=== PATIENT | male | born 1985 | race American Indian/Alaskan Native ===

== ENCOUNTER 2019-05-12 21:25 | Emergency (ER) | payer OTHER ==
[2019-05-12 21:37] VITALS: BP 134/66
[2019-05-12] MEDS ORDERED: AMOXICILLIN/K CLAV 875/125MG TAB PO ONE (22:14)
[2019-05-12] MEDS ORDERED: TETANUS,DIPH,PERTUSS(ACELL) VACCINE 0.5 ML SYRINGE IM ONE (22:14)
--- NOTE | 2019-05-13 01:18 | Emergency Department Report ---
ED General Adult HPI - General Chief complaint: Wound/Laceration Stated complaint: BITE BY CAT/LEFT HAND Time Seen by Provider: 05/13/19 01:07 Source: patient Mode of arrival: Ambulatory Limitations: No Limitations - History of Present Illness Initial comments: 34-year-old -[place] Citizen male was coming in contact with a stray cat when she tried to assist him resulted in him being scratched since several times and possibly bitten reports pain to the wrist and some abrasion no numbness or tingling no fevers, chills, sweats the bite occurred about 4-5 hours ago Location: upper extremity Radiation: non-radiation Quality: dull Consistency: constant Improves with: none Worsens with: none - Related Data Previous Rx's Medication Instructions Recorded Last Taken Type Amoxicillin/Potassium Clav 1 each PO BID #20 tablet 05/13/19 Unknown Rx [Augmentin 875-125 Tablet] Mupirocin [Bactroban 2%] 15 applic TP TID #15 gm 05/13/19 Unknown Rx Allergies Allergy/AdvReac Type Severity Reaction Status Date / Time No Known Allergies Allergy Verified 05/12/19 21:28 ED Review of Systems ROS: Stated complaint: BITE BY CAT/LEFT HAND Other details as noted in HPI Comment: All other systems reviewed and negative ED Past Medical Hx - Past Medical History Previous Medical History?: No - Surgical History Past Surgical History?: No - Social History Smoking Status: Never Smoker Substance Use Type: None - Medications Home Medications: Home Medications Medication Instructions Recorded Confirmed Last Taken Type Amoxicillin/Potassium Clav 1 each PO BID #20 tablet 05/13/19 Unknown Rx [Augmentin 875-125 Tablet] Mupirocin [Bactroban 2%] 15 applic TP TID #15 gm 05/13/19 Unknown Rx ED Physical Exam - General Limitations: No Limitations General appearance: alert, in no apparent distress - Head Head exam: Present: atraumatic, normocephalic - Eye Eye exam: Present: normal appearance, PERRL, EOMI Pupils: Present: normal accommodation - ENT ENT exam: Present: normal exam, normal orophraynx, mucous membranes moist - Neck Neck exam: Present: normal inspection, full ROM - Respiratory Respiratory exam: Present: normal lung sounds bilaterally. Absent: respiratory distress, wheezes, rales, rhonchi, chest wall tenderness, accessory muscle use - Cardiovascular Cardiovascular Exam: Present: regular rate, normal rhythm. Absent: systolic murmur, diastolic murmur, rubs, gallop - GI/Abdominal GI/Abdominal exam: Present: soft, normal bowel sounds. Absent: distended, tenderness, hyperactive bowel sounds, hypoactive bowel sounds, organomegaly, mass - Rectal Rectal exam: Present: deferred - Extremities Exam Extremities exam: Present: normal inspection, full ROM, tenderness, normal capillary refill - Expanded Upper Extremity Exam Left Forearm Wrist exam: Present: tenderness, abrasion, other (multiple scratches) Hand Wrist exam: Present: tenderness, abrasion, other (multiple scratches no obvious puncture wound sites) - Back Exam Back exam: Present: normal inspection. Absent: CVA tenderness (R), CVA tenderness (L) - Neurological Exam Neurological exam: Present: alert, oriented X3, CN II-XII intact, normal gait - Psychiatric Psychiatric exam: Present: normal affect, normal mood. Absent: anxious, flat affect, manic - Skin Skin exam: Present: warm, dry, intact, normal color. Absent: rash, cyanosis, diaphoretic, erythema, petechiae, pallor, abrasion ED Course Vital Signs 05/12/19 21:30 Temperature 97.4 F L Pulse Rate 72 Respiratory 16 Rate Blood Pressure 134/66 O2 Sat by Pulse 97 Oximetry Critical care attestation.: If time is entered above; I have spent that time in minutes in the direct care of this critically ill patient, excluding procedure time. ED Disposition Clinical Impression: Cat bite Disposition: DC-01 TO HOME OR SELFCARE Is pt being admited?: No Does the pt Need Aspirin: No Condition: Stable Instructions: Animal Bite (ED) Prescriptions: Amoxicillin/Potassium Clav [Augmentin 875-125 Tablet] 1 each PO BID #20 tablet Mupirocin [Bactroban 2%] 15 applic TP TID #15 gm Referrals: TATUM BAH MD [Primary Care Provider] - 3-5 Days [facility] [Provider Group] - 3-5 Days
== END 2019-05-13 01:55 | disposition home or self-care (01) ==
LOC: ED 21:25
DX: S60.512A Abrasion of left hand, initial encounter (principal); W55.03XA Scratched by cat, initial encounter; Y93.89 Activity, other specified; Y92.89 Other specified places as the place of occurrence of the external cause; Y99.8 Other external cause status
CPT/HCPCS: 90471; 99281

== ENCOUNTER 2020-04-25 08:11 | Emergency (ER) | payer OTHER ==
[2020-04-25 10:19] LABS: Eosinophils # (Auto) 0.1 K/mm3 (0.0-0.4); Eosinophils % (Auto) 2.6 % (0.0-4.3); Monocytes # (Auto) 0.6 K/mm3 (0.0-0.8); Monocytes % (Auto) 10.5 % (0.0-7.3)
[2020-04-25 10:29] LABS: Basophils % (Auto) 0.7 % (0.0-1.8); Hematocrit 42.4 % (35.5-45.6); Hemoglobin 14.7 gm/dl (11.8-15.2); Lymphocytes # (Auto) 2.2 K/mm3 (1.2-5.4); Lymphocytes % (Auto) 39.8 % (13.4-35.0); Mean Corpuscular HGB Conc 35 % (32-34); Mean Corpuscular Volume 92 fl (84-94); Platelet Count 187 K/mm3 (140-440); Red Cell Distribution Width 13.9 % (13.2-15.2)
[2020-04-25 10:37] LABS: INR 1.03 (0.87-1.13)
[2020-04-25 10:38] LABS: Partial Thromboplastin Time 34.9 Sec. (24.2-36.6)
--- NOTE | 2020-04-25 10:39 | XRay Report ---
CHEST 1 VIEW 04/25/2020 9:32 AM INDICATION / CLINICAL INFORMATION: chest pain, +COVID. COMPARISON: None available. FINDINGS: SUPPORT DEVICES: None. HEART / MEDIASTINUM: No significant abnormality. LUNGS / PLEURA: No significant pulmonary or pleural abnormality. No pneumothorax. ADDITIONAL FINDINGS: No significant additional findings. IMPRESSION: No acute cardiopulmonary abnormality. Signer Name: Guevara Kenyon MD Signed: 04/25/2020 10:35 AM Workstation Name: [id number]
[2020-04-25 10:41] LABS: BUN/Creatinine Ratio 15; Blood Urea Nitrogen 16 mg/dL (9-20); Calcium 9.7 mg/dL (8.4-10.2); Hemolysis Index 9
[2020-04-25] MEDS ORDERED: KETOROLAC 30 MG/1 ML INJ ONE (12:02)
[2020-04-25] MEDS ORDERED: KETOROLAC 30 MG/1 ML INJ IV ONE (12:02)
--- NOTE | 2020-04-25 14:16 | Emergency Department Report ---
ED Chest Pain HPI - General Chief Complaint: Chest Pain Stated Complaint: CHEST PAIN Time Seen by Provider: 04/25/20 09:09 Source: patient, EMS Mode of arrival: Stretcher Limitations: No Limitations - History of Present Illness Initial Comments: 35-year-old male presents with substernal chest pain x3 days, worse this morning. Pain is described as an aching pain. Patient diagnosed with COVID-19 11 days ago. Symptoms at that time included fever, cough, sneezing, diarrhea. Patient states those initial symptoms resolved 3 days ago, then chest pain b jw. Also reports brief episode of shortness of breath earlier, now resolved. MD Complaint: chest pain -: days(s) (3) Onset: during rest Pain Location: substernal Pain Radiation: none Severity: moderate Severity scale (0 -10): 0 Quality: aching Consistency: constant Improves With: nothing Worsens With: nothing re: nausea, vomting, dyspnea Other Symptoms: cough, fever. denies: leg swelling - Related Data Previous Rx's Medication Instructions Recorded Last Taken Type Amoxicillin/Potassium Clav 1 each PO BID #20 tablet 05/13/19 Unknown Rx [Augmentin 875-125 Tablet] Mupirocin [Bactroban 2%] 15 applic TP TID #15 gm 05/13/19 Unknown Rx Naproxen [Naprosyn] 500 mg PO BID #20 tablet 04/25/20 Unknown Rx traMADoL [Ultram] 50 mg PO Q6HR PRN #7 tablet 04/25/20 Unknown Rx Allergies Allergy/AdvReac Type Severity Reaction Status Date / Time No Known Allergies Allergy Verified 05/12/19 21:28 Heart Score - HEART Score History: Slightly suspicious EKG: Normal Age: < 45 Risk factors: No known risk factors Troponin: < normal limit HEART Score: 0 ED Review of Systems ROS: Stated complaint: CHEST PAIN Other details as noted in HPI Comment: All other systems reviewed and negative Constitutional: denies: chills, fever Respiratory: cough, shortness of breath Cardiovascular: chest pain Gastrointestinal: diarrhea Musculoskeletal: other (Denies leg pain and swelling) ED Past Medical Hx - Past Medical History Hx HIV: Yes - Social History Smoking Status: Never Smoker - Medications Home Medications: Home Medications Medication Instructions Recorded Confirmed Last Taken Type Amoxicillin/Potassium Clav 1 each PO BID #20 tablet 05/13/19 Unknown Rx [Augmentin 875-125 Tablet] Mupirocin [Bactroban 2%] 15 applic TP TID #15 gm 05/13/19 Unknown Rx Naproxen [Naprosyn] 500 mg PO BID #20 tablet 04/25/20 Unknown Rx traMADoL [Ultram] 50 mg PO Q6HR PRN #7 tablet 04/25/20 Unknown Rx ED Physical Exam - General Limitations: No Limitations General appearance: alert, in no apparent distress - Head Head exam: Present: atraumatic, normocephalic - Eye Eye exam: Present: normal appearance, EOMI - ENT ENT exam: Present: mucous membranes moist - Neck Neck exam: Present: normal inspection - Respiratory Respiratory exam: Present: normal lung sounds bilaterally, chest wall tenderness. Absent: respiratory distress - Cardiovascular Cardiovascular Exam: Present: regular rate, normal rhythm - GI/Abdominal GI/Abdominal exam: Present: soft. Absent: distended, tenderness - Extremities Exam Extremities exam: Present: normal inspection. Absent: pedal edema, calf tenderness - Neurological Exam Neurological exam: Present: alert, oriented X3 - Psychiatric Psychiatric exam: Present: normal affect, normal mood - Skin Skin exam: Present: warm, dry, intact, normal color ED Course Vital Signs 04/25/20 09:22 Temperature 97.9 F Pulse Rate 62 Respiratory 13 Rate Blood Pressure 157/96 [Left] O2 Sat by Pulse 98 Oximetry ED Medical Decision Making - Lab Data Result diagrams: 04/25/20 09:45 04/25/20 09:45 - EKG Data -: EKG Interpreted by Ca EKG shows normal: sinus rhythm, axis, intervals, QRS complexes, ST-T waves Rate: normal - EKG Data Interpretation: no acute changes - Radiology Data Radiology results: report reviewed, image reviewed - Medical Decision Making EKG shows no concerning ST changes. D-dimer is negative. Troponin negative x2. Chest x-ray is normal. O2 sats are normal, patient is in no respiratory distress. Discharge at this time. Outpatient follow-up advised. Return precautions given. - Differential Diagnosis ACS, pneumonia, PE Critical care attestation.: If time is entered above; I have spent that time in minutes in the direct care of this critically ill patient, excluding procedure time. ED Disposition Clinical Impression: COVID-19, Chest pain Disposition: DC-01 TO HOME OR SELFCARE Is pt being admited?: No Condition: Stable Instructions: COVID-19, Chest Pain (ED) Prescriptions: Naproxen [Naprosyn] 500 mg PO BID #20 tablet traMADoL [Ultram] 50 mg PO Q6HR PRN #7 tablet PRN Reason: Pain Referrals: PRIMARY CARE,MD [Primary Care Provider] - 3-5 Days [facility] [Provider Group] - 3-5 Days Time of Disposition: 14:16
[2020-04-25 15:33] VITALS: BP 97/65
== END 2020-04-25 15:34 | disposition home or self-care (01) ==
LOC: ED 08:11
DX: U07.1 COVID-19 (principal); R07.89 Other chest pain; R05 Cough; R50.9 Fever, unspecified; Z21 Asymptomatic human immunodeficiency virus [HIV] infection status; Z79.2 Long term (current) use of antibiotics; Z79.899 Other long term (current) drug therapy
CPT/HCPCS: 36415; 71045; 80048; 84484; 85025; 85379; 85610; 85730; 93005; 96374; 99284; J1885

== ENCOUNTER 2020-11-22 23:32 | Emergency (ER) | payer OTHER ==
--- NOTE | 2020-11-23 02:19 | XRay Report ---
CHEST 2 VIEWS INDICATION: cough. COMPARISON: 04/25/2020 FINDINGS: Support devices: None. Heart: Within normal limits. Lungs: No acute air space or interstitial disease. Pleura: No significant pleural effusion. No pneumothorax. Additional findings: None. IMPRESSION: 1. No acute findings. Signer Name: Kishore Jones MD Signed: 11/23/2020 2:15 AM Workstation Name: [id number]
--- NOTE | 2020-11-23 04:55 | Emergency Department Report ---
ED General Adult HPI - General Chief complaint: Upper Respiratory Infection Stated complaint: COUGH PUI?: Yes Time Seen by Provider: 11/23/20 04:49 Source: patient Mode of arrival: Ambulatory Limitations: No Limitations - History of Present Illness Initial comments: 35-year-old -[place] male presents emerged from complaining of a 2-month history of a nonproductive cough that is worsened with deep breaths and and some range of motion. No fevers, chills, sweats. Reports no chest pain palpitation. No nausea vomiting. Hemoptysis. -: Gradual Radiation: non-radiation Quality: dull Consistency: constant Improves with: none Worsens with: none Associated Symptoms: denies other symptoms, cough. denies: malaise, nausea/vomiting, syncope, weakness - Related Data Previous Rx's Medication Instructions Recorded Last Taken Type Amoxicillin/Potassium Clav 1 each PO BID #20 tablet 05/13/19 Unknown Rx [Augmentin 875-125 Tablet] Mupirocin [Bactroban 2%] 15 applic TP TID #15 gm 05/13/19 Unknown Rx Naproxen [Naprosyn] 500 mg PO BID #20 tablet 04/25/20 Unknown Rx traMADoL [Ultram] 50 mg PO Q6HR PRN #7 tablet 04/25/20 Unknown Rx ALBUTEROL NEB's [Proventil 0.083% 2.5 mg IH TID PRN #1 neb 11/23/20 Unknown Rx NEBS] Benzonatate [Tessalon Perles] 100 mg PO Q8HR #20 capsule 11/23/20 Unknown Rx Allergies Allergy/AdvReac Type Severity Reaction Status Date / Time No Known Allergies Allergy Verified 05/12/19 21:28 ED Review of Systems ROS: Stated complaint: COUGH Other details as noted in HPI Comment: All other systems reviewed and negative ED Past Medical Hx - Past Medical History Previous Medical History?: Yes Hx HIV: Yes - Surgical History Past Surgical History?: No - Social History Smoking Status: Never Smoker Substance Use Type: None - Medications Home Medications: Home Medications Medication Instructions Recorded Confirmed Last Taken Type Amoxicillin/Potassium Clav 1 each PO BID #20 tablet 05/13/19 Unknown Rx [Augmentin 875-125 Tablet] Mupirocin [Bactroban 2%] 15 applic TP TID #15 gm 05/13/19 Unknown Rx Naproxen [Naprosyn] 500 mg PO BID #20 tablet 04/25/20 Unknown Rx traMADoL [Ultram] 50 mg PO Q6HR PRN #7 tablet 04/25/20 Unknown Rx ALBUTEROL NEB's [Proventil 0.083% 2.5 mg IH TID PRN #1 neb 11/23/20 Unknown Rx NEBS] Benzonatate [Tessalon Perles] 100 mg PO Q8HR #20 capsule 11/23/20 Unknown Rx ED Physical Exam - General Limitations: No Limitations General appearance: alert, in no apparent distress - Head Head exam: Present: atraumatic, normocephalic - Eye Eye exam: Present: normal appearance, PERRL, EOMI Pupils: Present: normal accommodation - ENT ENT exam: Present: normal exam, mucous membranes moist - Neck Neck exam: Present: normal inspection, full ROM - Respiratory Respiratory exam: Present: normal lung sounds bilaterally. Absent: respiratory distress, wheezes, rales, rhonchi, stridor, chest wall tenderness, accessory muscle use - Cardiovascular Cardiovascular Exam: Present: regular rate, normal rhythm. Absent: systolic murmur, diastolic murmur, rubs, gallop - GI/Abdominal GI/Abdominal exam: Present: soft, normal bowel sounds. Absent: tenderness, guarding, hyperactive bowel sounds, hypoactive bowel sounds, organomegaly, mass - Rectal Rectal exam: Present: deferred - Extremities Exam Extremities exam: Present: normal inspection, full ROM, normal capillary refill - Back Exam Back exam: Present: normal inspection. Absent: CVA tenderness (R), CVA t enderness (L), paraspinal tenderness, vertebral tenderness - Neurological Exam Neurological exam: Present: alert, oriented X3, CN II-XII intact, normal gait - Psychiatric Psychiatric exam: Present: normal affect, normal mood. Absent: flat affect, manic - Skin Skin exam: Present: warm, dry, intact, normal color. Absent: rash, cyanosis, diaphoretic ED Course Vital Signs 11/23/20 01:41 Temperature 98.7 F Pulse Rate 58 L Respiratory 18 Rate Blood Pressure 111/62 O2 Sat by Pulse 100 Oximetry ED Medical Decision Making - Radiology Data Radiology results: report reviewed [address] [place] [address] XRay Report Signed Patient: ELLIOT HATCH MR#: [id number] : 1985 Acct:[id number] Age/Sex: 35 / M ADM Date: 11/22/20 Loc: ED Attending Dr: Ordering Physician: IRIS ARIZA MD Date of Service: 11/23/20 Procedure(s): XR chest routine 2V Accession Number(s): [id number] cc: IRIS ARIZA MD Fluoro Time In Minutes: CHEST 2 VIEWS INDICATION: cough. COMPARISON: 04/25/2020 FINDINGS: Support devices: None. Heart: Within normal limits. Lungs: No acute air space or interstitial disease. Pleura: No significant pleural effusion. No pneumothorax. Additional findings: None. IMPRESSION: 1. No acute findings. Signer Name: Kishore Jones MD Signed: 11/23/2020 2:15 AM Workstation Name: [id number] Transcribed By: Dictated By: Kishore Jones MD Electronically Authenticated By: Kishore Jones MD Signed Date/Time: 11/23/20214 DD/ 4 TD/TT: - Medical Decision Making This patient presents with acute cough, most consistent with cough. Differential diagnosis includes bronchitis, asthma, hyperreactive airway disease,. Presentation not consistent with acute bacterial pneumonia, influenza, asthma, transient airway hyperresponsiveness. Presentation not consistent with chronic causes of cough (including GERD, asthma, postnasal discharge, medication side effect, CHF, lung cancer or mass). Plan: Normal CXR, supportive care, reassess Critical care attestation.: If time is entered above; I have spent that time in minutes in the direct care of this critically ill patient, excluding procedure time. ED Disposition Clinical Impression: Cough Disposition: DC-01 TO HOME OR SELFCARE Is pt being admited?: No Does the pt Need Aspirin: No Condition: Stable Instructions: Cough, Adult, Cool Mist Vaporizer Prescriptions: ALBUTEROL NEB's [Proventil 0.083% NEBS] 2.5 mg IH TID PRN #1 neb PRN Reason: Wheezing Benzonatate [Tessalon Perles] 100 mg PO Q8HR #20 capsule Referrals: PRIMARY CARE, [Primary Care Provider] - 3-5 Days [facility] [Provider Group] - 3-5 Days
[2020-11-23 05:32] VITALS: BP 112/65
== END 2020-11-23 05:32 | disposition home or self-care (01) ==
LOC: ED 23:32
DX: R05 Cough (principal); Z79.899 Other long term (current) drug therapy; Z21 Asymptomatic human immunodeficiency virus [HIV] infection status
CPT/HCPCS: 71046